=== PATIENT | female | born 1990 | race Two or more races ===

== ENCOUNTER 2025-04-03 10:32 | Emergency (ER) | payer SELFPAY ==
[2025-04-03 08:50] VITALS: BP 134/85; PULSE 111; RESP 16; TEMP 36.9; O2SAT 98
[2025-04-03 09:16] VITALS: PULSE 108; O2SAT 98
[2025-04-03 09:32] LABS: Collection Type, Urine Clean Catch; RBC,Urine 0 /hpf (0-3); WBC,Urine 0 /hpf (0-5)
[2025-04-03 09:34] LABS: HCG Qualitative,Urine Negative
[2025-04-03 10:04] LABS: Bilirubin,Urine Negative (Negative); Blood,Urine Negative (Negative); Clarity,Urine Clear (Clear/Hazy); Color,Urine Colorless (Lt Yel-Yel); Culture Indicated,Urine Not Indicated; Glucose, Urine Negative (Negative); Ketones,Urine Negative (Negative); Leukocyte Esterase,Urine Negative (Negative); Nitrite,Urine Negative (Negative); PH,Urine 6.0 (5.0-7.0); Protein,Urine Negative (Neg - Trace); Specific Gravity,Urine 1.003 (1.001-1.035); Squamous Epithelial Cell,Urine < 1 /hpf (0-5); Urobilinogen,Urine Negative mg/dL (0.0-1.0)
[2025-04-03 10:06] LABS: Basophils # (Auto) 0.1 Thou/mm3 (0.0-0.2); Basophils % (Auto) 1 % (0-2.5); Eosinophils # (Auto) 0.4 Thou/mm3 (0.0-0.5); Eosinophils % (Auto) 4 % (0-10); Hematocrit 44.3 % (36.0-46.0); Hemoglobin 14.8 g/dL (12.0-16.0); Immature Granulocytes Auto 0.05 Thou/mm3 (0.00-0.00); Lymphocytes # (Auto) 4.3 Thou/mm3 (1.0-4.8); Lymphocytes % (Auto) 49 % (10-50); Mean Corpuscular HGB Conc 33.4 g/dl (31.0-37.0); Mean Corpuscular Hemoglobin 30.1 pg (25.0-35.0); Mean Corpuscular Volume 90 fL (80-100); Monocytes # (Auto) 0.3 Thou/mm3 (0.0-0.8); Monocytes % (Auto) 4 % (0-12); Neutrophils # (Auto) 3.7 Thou/mm3 (1.8-7.7); Neutrophils % (Auto) 42 % (37-80); Nucleated Red Blood Cell # 0.00 Thou/mm3 (0.00-0.00); Nucleated Red Blood Cell % 0 /100 WBC (0); Platelet Count 221 Thou/mm3 (140-440); RDW Standard Deviation 46.9 fL (36.4-46.3); Red Blood Count 4.91 Miln/mm3 (4.00-5.20); White Blood Count 8.8 Thou/mm3 (3.6-11.0)
[2025-04-03 10:24] LABS: Amphetamine/Methamp Scrn,U Negative (Negative); Barbiturate Screen,Urine Negative (Negative); Benzodiazepines Screen,Urine Positive (Negative); Benzoylecgonine Screen, Ur Negative (Negative); Fentanyl Screen,Urine Negative (Negative); Opiate Screen,Urine Negative (Negative); THC Screen,Urine Negative (Negative)
[2025-04-03 10:25] LABS: Alanine Aminotransferase 54 U/L (10-49); Albumin, Serum 5.4 gm/dL (3.5-5.0); Albumin/Globulin Ratio 2.0 (1.2-2.2); Alcohol, Blood Medical 395.5 mg/dL (0-10.0); Alkaline Phosphatase 128 U/L (46-116); Ammonia < 10 uMol/L (11-32); Anion Gap 15 (7-16); Aspartate Amino Transferase 45 U/L (0-34); BUN/Creatinine Ratio 8 Ratio (12-20); Bilirubin,Total 0.7 mg/dL (0.3-1.2); Blood Urea Nitrogen 5 mg/dL (9-23); Calcium 9.0 mg/dL (8.3-10.6); Calcium (Corrected) 9.0 mg/dL (8.5-10.1); Carbon Dioxide 21.2 mMol/L (20.0-31.0); Chloride 113 mMol/L (98-107); Creatinine (Component) 0.6 mg/dL (0.6-1.3); Globulin 2.7 gm/dL (2.3-3.5); Glucose 112 mg/dL (74-106); Osmolality,Calculated 294 (275-295); Potassium 3.3 mMol/L (3.4-5.1); Sodium 149 mMol/L (136-145); Total Protein 8.1 gm/dL (5.7-8.2); eGFR > 60 See Note
--- NOTE | 2025-04-03 10:27 | EDNOTE_ITS ---
Altered Mental Status RME/HPI General Chief Complaint: Altered Mental Status Stated Complaint: ALTERED RME / HPI RME / HPI narrative: DR. NOLAN MAIN ED EVALUATION: 35-year-old female with no known medical history available was brought in by EMS for altered mental status. Per EMS, the patient was found intoxicated, intermittently waking up, mumbling I love you , then falling back asleep. The patient was unable to provide history due to intoxication. No report of trauma or vomiting. Related Data Allergies Allergy/AdvReac Type Severity Reaction Status Date / Time No Known Allergies Allergy Verified 04/03/25 11:53 Review of Systems Review of Systems Systems Reviewed: All systems reviewed, normal except as documented Past Medical History Past Medical History ENDOCRINE: Positive Diabetes Mellitus Type 2 Social History SMOKING STATUS: Unknown if ever smoked ED Exam Narrative Physical exam: GENERAL APPEARANCE:? Somnolent but arousable to verbal stimuli; slurred speech; odor of alcohol on breath; appears intoxicated HEENT: normocephalic, atraumatic NECK: supple LUNGS: no respiratory distress, normal effort HEART: good peripheral perfusion ABDOMEN: non distended EXTREMITIES:? atraumatic NEUROLOGIC: Drowsy but arousable; moves all extremities spontaneously; no focal motor deficits PSYCHIATRIC:? Sleepy, intoxicated; mood and affect unable to assess due to alcohol effect SKIN: warm, dry, normal color; no rashes Course Quality Measures none Orders Category Date Time Status In and Out Catheter X1 Care 04/03/25 09:20 Completed Alcohol, Blood Medical Stat Lab 04/03/25 09:30 Completed Ammonia Stat Lab 04/03/25 09:30 Completed CBC Stat Lab 04/03/25 09:30 Completed CMP [Comprehensive Metabolic Panel] Stat Lab 04/03/25 09:30 Completed Drug Screen,Urine Stat Lab 04/03/25 07:23 Completed HCG Qualitative,Urine Stat Lab 04/03/25 07:23 Completed UA, C/S IF [Urinalysis, C/S if Indicated] Stat Lab 04/03/25 07:23 Completed POTASSIUM CHL 10 mEq IVPB [Kcl Ivpb] Med 04/03/25 11:51 Active 10 meq in 100 ml IV Q1H Sodium Chloride 0.9% 1000 ml [Ns] 1,000 ml Med 04/03/25 11:51 Discontinued IV 999 mls/hr Vital Signs Vital signs: Vital Signs Temperature 98.5 F 04/03/25 08:50 Pulse Rate 111 H 04/03/25 08:50 Respiratory Rate 16 04/03/25 08:50 Blood Pressure 134/85 H 04/03/25 08:50 Pulse Oximetry (%) 98 04/03/25 08:50 Oxygen Delivery Method Room Air 04/03/25 08:50 Altered Mental Status MDM Narrative MDM Narrative:: I, Umu Orr, am scribing for and in the presence of Dr. Nolan. Patient data External records reviewed:: [facility] previous records and EMS form Clinical information provided by:: patient and EMS Social determinants that could affect healthcare access:: alcohol use Patient has the following chronic illnesses:: No known history, daily medications, or known allergies. How is presenting disease/condition affected by chronic disease/condition?: no chronic disease Evaluation data The following diagnostics were reviewed and interpreted by me:: lab results Lab and/or radiology exams considered but not ordered:: none Interpretation Summary: Positive for benzos. Ethyl Alcohol 395.5. Medications / Prescriptions Medications or Prescriptions considered but not ordered:: none Medication administrations:: Medication Administration History Potassium Chloride (Kcl Ivpb) 10 meq in 100 mls @ 100 mls/hr IV Q1H WENDY Stop: 04/03/25 15:50 Last Infusion: 04/03/25 14:19 Dose: Infused Documented By: Admin: 04/03/25 13:16 Dose: 100 mls/hr Documented By: Infusion: 04/03/25 13:16 Dose: Infused Documented By: Admin: 04/03/25 11:58 Dose: 100 mls/hr Documented By: EF Discontinued Medications Sodium Chloride (Ns) 1,000 mls @ 999 mls/hr IV .Q1H1M ONE Stop: 04/03/25 12:51 Last Admin: 04/03/25 11:58 Dose: 999 mls/hr Documented By: EF see above if any Consultations Consultation(s) initiated? (list below): No Diagnosis Differential diagnosis altered mental status: other (Alcohol intoxication, hypoglycemia, and drug co-ingestion.) Most likely diagnosis given after review of the tests above:: Alcoholic intoxication Admission Indicated Admission indicated?: not indicated Admission Request Was there a request for admission?: No Disposition Plan Disposition Plan: Discharge Discharge Attestation Discharge Attestation: The patient and all family members were given an opportunity to ask questions and understood the discharge instructions. Discharge instructions specifically effects, indications for sooner follow up or return to the emergency department, and the expected course of current diagnosis. Patient condition: Stable Discharge Plan Plan Patient Disposition: HOME (Self Care) Problem List Clinical Impression: Alcoholic intoxication Patient/Caregiver Discharge Instructions Education Materials: ED Alcohol Intoxication Print Language: Citizen Of [place] Stand Alone Forms: [employer] Award Info., Patient Portal Info Letter
[2025-04-03 10:29] VITALS: BP 97/67; PULSE 110; TEMP 36.7; O2SAT 99
[2025-04-03] MEDS: POTASSIUM CHL 10 mEq IVPB 10 MEQ/100 ML BAG 100 MEQ IV ×2 (11:58→13:16)
[2025-04-03] MEDS: SODIUM CHLORIDE 0.9% 1000 ML 1,000 ML 999 ML IV (11:58)
[2025-04-03 12:04] VITALS: BP 111/83; PULSE 103; RESP 18; TEMP 36.9; O2SAT 100
[2025-04-03 14:25] VITALS: BP 125/80; PULSE 110; RESP 16; O2SAT 96
== END 2025-04-03 14:25 | disposition home or self-care (01) ==
PROVIDERS: Emergency Provider Emergency Medicine
DX: F10.129 Alcohol abuse with intoxication, unspecified (principal); Y90.9 Presence of alcohol in blood, level not specified
CPT/HCPCS: 36415; 51701; 80053; 80307; 80320; 81001; 81025; 82140; 85025; 96365; 96366; 99283; J3480; J7030; G0480